=== PATIENT | male | born 1935 | race Caucasian/White ===

== ENCOUNTER 2017-03-05 12:04 | Emergency (ER) | payer MEDICARE, BC ==
[~2017-03-05] VITALS: Ht 182.9 cm; Wt 72.6 kg
[2017-03-05] MEDS: IV NORMAL SALINE 1000 ML BAG IV ONE (12:11)
--- NOTE | 2017-03-05 12:25 | NUR ---
PT OUT OF ER FOR CT.
[2017-03-05 12:27] LABS: BASOPHILS % (AUTO) 0.7 % (0.0-2.0); EOSINOPHILS # (AUTO) 0.2 K/uL (0.0-0.7); EOSINOPHILS % (AUTO) 2.7 % (0.0-7.0); HEMATOCRIT 37.3 % (36.7-47.1); LYMPHOCYTES # (AUTO) 1.5 K/uL (20.0-40.0); LYMPHOCYTES % (AUTO) 20.7 % (20.5-51.5); MEAN CORPUSCULAR HEMOGLOBIN 33.8 uug (23.8-33.4); MEAN CORPUSCULAR HGB CONC 35 g/dL (32.5-36.3); MEAN CORPUSCULAR VOLUME 96.8 fL (73.0-96.2); MONOCYTES # (AUTO) 0.6 K/uL (2.0-10.0); NEUTROPHILS # (AUTO) 4.9 K/uL (1.8-8.9); NEUTROPHILS % (AUTO) 67.9 % (38.5-71.5); PLATELET COUNT (AUTO) 156 K/uL (152-348); RED BLOOD CELL COUNT(AUTO) 3.86 MIL/uL (4.06-5.63); WHITE BLOOD COUNT (AUTO) 7.2 K/uL (3.6-10.2)
[2017-03-05 12:37] LABS: CARBON DIOXIDE 23 mmol/L (21-32); CHLORIDE 109 mmol/L (98-107); CREATININE 1.1 mg/dL (0.6-1.3); GLUCOSE 116 mg/dL (74-106); POTASSIUM 3.8 mmol/L (3.5-5.1); UREA NITROGEN, BLOOD 27 mg/dL (7-18)
[2017-03-05 12:42] LABS: ALANINE AMINOTRANSFERASE 13 U/L (16-63); ALKALINE PHOSPHATASE 90 U/L (50-136); ASPARTATE AMINOTRANSFERASE 19 U/L (15-37); BILIRUBIN,DIRECT 0.2 mg/dL (0.0-0.2); BILIRUBIN,TOTAL 0.9 mg/dL (0.2-1.0); TOTAL PROTEIN, SERUM 5.7 g/dL (6.4-8.2)
--- NOTE | 2017-03-05 12:43 | NUR ---
PT BACK FROM CT, DENIES DIZZINESS. NO C/O PAIN. PLACE BACK ON MONITOR.
--- NOTE | 2017-03-05 13:43 | NUR ---
pt called and was told that the pt wants to leaVE AMA. PT SAID SHE WILL COME AND [employer]NA[employer] THE PT.
[2017-03-05 14:03] VITALS: BP 120/44
--- NOTE | 2017-03-05 14:04 | NUR ---
Patient does not wish to proceed with medical care recommended by Dr. STILES ). Patient given information related to possible complications, up to and including , which could occur as a result of leaving the hospital at this time. Patient verbalizes understanding of risks involved due to leaving against medical advice. Patient has signed AMA form.pt left Er accompained by w/ steady gait.
== END 2017-03-05 14:05 | disposition left against medical advice (07) ==
LOC: ER 12:05
DX: R55 Syncope and collapse (principal); I48.91 Unspecified atrial fibrillation
CPT/HCPCS: 36415; 70450; 71010; 73080; 80048; 80076; 84484; 85025; 85730; 93005; 96360; 99285; A4663; J3490; J7030; 70030-TC